=== PATIENT | female | born 1940 | race Caucasian/White ===

== ENCOUNTER → 2018-01-06 | Outpatient (CLI) | payer MEDICARE, BC ==
[~2018-01-06] MED LIST: ALBU90OI INH; ALLERCLEAR10 MG PO; ASPI325 PO; Advil200 M1 PO; Coq-1030 MG PO; DOCU100 PO; Flonase 0.05% N16 GM; HYDMOR2 PO; HYDR1TAB94 PO; Hair, Skin & N1 EACH PO; MAALOX ADVANCE1 EACH PO; Multivitamin1 EAC1 PO; OMEP20ER PO; ONDA4ODT SL; RAMI5; RAMI5 PO; ROSU10TA; TRIHYD253A PO; ZOLP5 PO
[2018-01-06 18:39] LABS: BASOPHILS ABSOLUTE AUTO 0.01 K/mm3 (0.00-0.23); BASOPHILS PERCENT AUTO 0 % (0-2); EOSINOPHILS ABSOLUTE AUTO 0.03 K/mm3 (0.00-0.68); EOSINOPHILS PERCENT AUTO 0 % (0-6); Hematocrit 39.8 % (33.0-51.0); Hemoglobin 13.6 g/dL (11.5-16.0); IMMATURE GRAN ABSOLUTE AUTO 0.05 K/mm3 (0.00-0.10); IMMATURE GRAN PERCENT AUTO 1 % (0-1); LYMPHOCYTES ABSOLUTE AUTO 0.67 K/mm3 (0.84-5.20); LYMPHOCYTES PERCENT AUTO 8 % (21-46); MONOCYTES ABSOLUTE AUTO 0.48 K/mm3 (0.16-1.47); MONOCYTES PERCENT AUTO 6 % (4-13); Mean Corpuscular HGB 29.6 pg (26.0-34.0); Mean Corpuscular HGB Conc 34.2 g/dL (31.5-36.5); Mean Corpuscular Volume 87 fL (80-100); Mean Platelet Volume 10.2 fL (9.1-12.4); NEUTROPHILS PERCENT AUTO 85 % (41-73); Platelet Count 251 K/mm3 (150-400); RDW Coefficient Variation 15.4 % (11.7-14.2); RDW Standard Deviation 48.9 fL (35.1-46.3); Red Blood Cell Count 4.59 M/mm3 (3.80-5.20); White Blood Cell Count 8.34 K/mm3 (4.00-11.30)
== END ==
LOC: LAB EV 18:35
PROVIDERS: Internal Medicine
DX: R50.9 Fever, unspecified (principal)
CPT/HCPCS: 85025

== ENCOUNTER → 2018-03-28 | Outpatient (CLI) | payer MEDICARE, BC | LOC: PLD 07:47 → LAB SHORT 07:47 | DX: D22.5 Melanocytic nevi of trunk (principal) | CPT/HCPCS: 88305 ==

== ENCOUNTER 2019-01-16 10:10 | Day surgery (SDC) | payer MEDICARE, BC ==
[~2019-01-16] VITALS: Ht 152.4 cm; Wt 52.3 kg
[~2019-01-16 10:10] MED LIST changes: +ASPI81CH PO
[2019-01-16] MEDS ORDERED: ALBU90OI61 INH (10:32)
[2019-01-16] MEDS ORDERED: Flonase 0.05% N16 GM (10:33)
--- NOTE | 2019-01-16 14:45 | NUR ---
RIGHT RADIAL SITE BLEEDING. 2 CC AIR ADDED TO TR BAND. BLEEDING STOPPED.
--- NOTE | 2019-01-16 15:37 | NUR ---
AMBULATED TO BATHROOM. SLIGHTLY DIZZY BUT BETTER AFTER BEING UP. TR BAND INTACT NO BLEEDING AT SITE.
--- NOTE | 2019-01-16 16:00 | NUR ---
TYLENOL 650 MG PO GIVEN FOR 5/10 HEADACHE.
--- NOTE | 2019-01-16 19:19 | NUR ---
SHIFT SUMMARY Assumed care of pt upon arrival to unit at 1640. Report recieved from heart center nurse. Pt self transferred from [facility] to PCU bed. Pt has right transradial access. Pt on room air. Sinus rhythm per telemetry. Color, sensation, capillary refill, and distal pulses equal BUE. 2 mL air removed form TR band. No drainage. Bed in lowest position. Call light in reach. Pt denies need at this time. Report given to Noy LUCAS. Plans for pt to discharge in AM.
--- NOTE | 2019-01-17 04:25 | NUR ---
SHIFT SUMMARY: APPROX 1900 RELEASED 2ML AIR FROM TR BAND, PATIENT STARTED TO SEEP BLOOD, AIR REINFLATED APPROX 3 ATTEMPTS BETWEEN 1999 AND 2300 TO RELEASE AIR FROM TR BAND, PATIENT BEGAN TO SEEP BLOOD SLOWLY EACH TIME, AIR REINFLATED EACH TIME. APPROX 0000 REATTEMPTED TO RELEASE 2ML AIR FROM TR BAND, SUCCESSFULL, NO NEW SIGNS OF BLEEDING NOTED. PATIENT HAS NOT HAD ANY NEW BRUSING OR SENSATION LOSS DISTAL TO PUNCTURE SITE, PULSES AND CAPILLARY REFILL WNL, VSS, PATIENT ALERT ORIENTED AND ABLE TO AMBULATE WITH NO DIZZY EPISODES.
[2019-01-17 05:24] LABS: BASOPHILS ABSOLUTE AUTO 0.02 K/mm3 (0.00-0.23); BASOPHILS PERCENT AUTO 0 % (0-2); EOSINOPHILS ABSOLUTE AUTO 0.07 K/mm3 (0.00-0.68); EOSINOPHILS PERCENT AUTO 1 % (0-6); Hematocrit 38.4 % (33.0-51.0); Hemoglobin 12.7 g/dL (11.5-16.0); IMMATURE GRAN ABSOLUTE AUTO 0.01 K/mm3 (0.00-0.10); IMMATURE GRAN PERCENT AUTO 0 % (0-1); LYMPHOCYTES ABSOLUTE AUTO 1.12 K/mm3 (0.84-5.20); LYMPHOCYTES PERCENT AUTO 17 % (21-46); MONOCYTES ABSOLUTE AUTO 0.64 K/mm3 (0.16-1.47); MONOCYTES PERCENT AUTO 10 % (4-13); Mean Corpuscular HGB 32.3 pg (26.0-34.0); Mean Corpuscular HGB Conc 33.1 g/dL (31.5-36.5); Mean Corpuscular Volume 98 fL (80-100); Mean Platelet Volume 10.4 fL (9.1-12.4); NEUTROPHILS ABSOLUTE AUTO 4.57 K/mm3 (1.96-9.15); NEUTROPHILS PERCENT AUTO 71 % (41-73); Platelet Count 232 K/mm3 (150-400); RDW Coefficient Variation 12.2 % (11.7-14.2); RDW Standard Deviation 44.4 fL (35.1-46.3); Red Blood Cell Count 3.93 M/mm3 (3.80-5.20); White Blood Cell Count 6.43 K/mm3 (4.00-11.30)
[2019-01-17 05:42] LABS: Anion Gap 10 mmol/L (6-16); Blood Urea Nitrogen 10 mg/dL (8-24); Bun/Creatinine Ratio 12.5 (12.0-20.0); CO2, Blood 21 mmol/L (21-32); Calcium, Blood 8.6 mg/dL (8.5-10.1); Chloride, Blood 111 mmol/L (98-108); Glomerular Filtration Rate >60 (60-); Glucose, Blood 112 mg/dL (70-99); Potassium, Blood 3.6 mmol/L (3.5-5.5); Sodium, Blood 142 mmol/L (136-145)
--- NOTE | 2019-01-17 05:56 | NUR ---
cont.. PATIENT TR BAND SUCCESSFULLY RECOVERED AT APPROX 0500, NO BLEEDING , HEMATOMA OR INCREASED SWELLING NOTED. ALL SENSATIONS INTACT, GOOD CIRCULATION, NO PAIN. OCCLUSSIVE BANDAGE ON AND BRACE ON. PATIENT DOING WELL, VSS, CALL LIGHT WITHIN REACH.
[2019-01-17] MEDS ORDERED: CARV3.125 PO (10:59)
[2019-01-17] MEDS ORDERED: CLOP75 PO (10:59)
--- NOTE | 2019-01-17 11:41 | NUR ---
DISCHARGE NOTE PT STABLE FOR DISCHARGE. IV REMOVED. RIGHT WRIST SOFT, NO BLEED OR HEMATOMA, OPSITE CDI, ARM BOARD IN PLACE. DISCHARGE INSTRUCTIONS REVIEWED WITH PT. PT VERBALIZES UNDERSTANDING AND DENIES QUESTIONS. PT DISCHARGED TO WAITING CAR WITH BELONGINGS.
== END 2019-01-17 11:55 | disposition home or self-care (01) ==
LOC: MHTC 10:10 → PCU 13:41 → MHTC 01-17 11:55
PROVIDERS: Emergency Medicine
DX: R94.30 Abnormal result of cardiovascular function study, unspecified (principal); R07.9 Chest pain, unspecified
CPT/HCPCS: 36415; 80048; 85025; 85347; 92921; 93458; 99152; 99153; C1725; C1769; C1874; C1887; C1894; C9600; J0360; J1644; J2250; J3010; J7030; J7040; Q9967

== ENCOUNTER → 2019-05-13 | Outpatient (CLI) | payer MEDICARE, BC ==
[~2019-05-13] MED LIST changes: +ALBU90OI61 INH; +CARV3.125 PO; +CLOP75 PO
== END | disposition home or self-care (01) ==
LOC: LAB EV 12:13 → LAB SHORT 12:13
DX: J02.9 Acute pharyngitis, unspecified (principal)
CPT/HCPCS: 87081

== ENCOUNTER 2020-03-28 08:46 | Day surgery (SDC) | payer MEDICARE, BC | END 2020-03-28 23:30 | disposition home or self-care (01) | LOC: MOI RAD 08:46 | DX: M24.851 Other specific joint derangements of right hip, not elsewhere classified (principal); M16.11 Unilateral primary osteoarthritis, right hip; M94.251 Chondromalacia, right hip; M70.61 Trochanteric bursitis, right hip | CPT/HCPCS: 20610; 73722; 77002; A9577; Q9967 ==

== ENCOUNTER 2020-12-02 16:32 | Observation (INO) | payer MEDICARE, BC ==
[~2020-12-02] VITALS: Ht 157.5 cm; Wt 50.9 kg
[~2020-12-02 16:32] MED LIST changes: -ASPI81CH PO; +ASPIR 8181 MG PO
[2020-12-02 17:24] LABS: BASOPHILS ABSOLUTE AUTO 0.02 K/mm3 (0.00-0.23); BASOPHILS PERCENT AUTO 0 % (0-2); EOSINOPHILS ABSOLUTE AUTO 0.04 K/mm3 (0.00-0.68); EOSINOPHILS PERCENT AUTO 1 % (0-6); Hematocrit 44.9 % (33.0-51.0); Hemoglobin 14.9 g/dL (11.5-16.0); IMMATURE GRAN ABSOLUTE AUTO 0.03 K/mm3 (0.00-0.10); IMMATURE GRAN PERCENT AUTO 0 % (0-1); LYMPHOCYTES PERCENT AUTO 7 % (21-46); MONOCYTES ABSOLUTE AUTO 0.57 K/mm3 (0.16-1.47); MONOCYTES PERCENT AUTO 7 % (4-13); Mean Corpuscular HGB 31.8 pg (26.0-34.0); Mean Corpuscular HGB Conc 33.2 g/dL (31.5-36.5); Mean Corpuscular Volume 96 fL (80-100); NEUTROPHILS ABSOLUTE AUTO 7.21 K/mm3 (1.96-9.15); NEUTROPHILS PERCENT AUTO 85 % (41-73); Platelet Count 263 K/mm3 (150-400); RDW Coefficient Variation 12.5 % (11.7-14.2); RDW Standard Deviation 44.2 fL (35.1-46.3); Red Blood Cell Count 4.68 M/mm3 (3.80-5.20); White Blood Cell Count 8.47 K/mm3 (4.00-11.30)
[2020-12-02 17:59] LABS: Alanine Aminotransfer (ALT/SGP 37 U/L (12-78); Albumin, Blood 3.9 g/dL (3.4-5.0); Albumin/Globulin Ratio 1.2 (0.8-1.8); Alk Phos 61 U/L (50-136); Anion Gap 7 mmol/L (6-16); Aspartate Aminotrans (AST/SGOT 38 U/L (12-37); Bilirubin, Total 0.9 mg/dL (0.1-1.0); Blood Urea Nitrogen 22 mg/dL (8-24); Bun/Creatinine Ratio 23.5 (12.0-20.0); CO2, Blood 24 mmol/L (21-32); Calcium, Blood 9.6 mg/dL (8.5-10.1); Chloride, Blood 104 mmol/L (98-108); Creatinine, Blood 0.94 mg/dL (0.40-1.00); Globulin, Blood 3.3 g/dL (2.2-4.0); Glomerular Filtration Rate >60 (60-); Glucose, Blood 116 mg/dL (70-99); Potassium, Blood 4.4 mmol/L (3.5-5.5); Sodium, Blood 135 mmol/L (136-145); Total Protein, Blood 7.2 g/dL (6.4-8.2)
[2020-12-02] MEDS ORDERED: DOCU100 PO ×2 (19:40→20:09)
[2020-12-02] MEDS ORDERED: AMLODIPINE BES2.5 MG PO ×2 (19:41→20:08)
[2020-12-02] MEDS ORDERED: ROSUVASTATIN CA20 MG PO (20:07)
[2020-12-02] MEDS ORDERED: BENADRYL25 MG PO (22:47)
[2020-12-02] MEDS ORDERED: MELATONIN5 M1 (22:48)
[2020-12-03 05:08] LABS: BASOPHILS ABSOLUTE AUTO 0.02 K/mm3 (0.00-0.23); BASOPHILS PERCENT AUTO 0 % (0-2); EOSINOPHILS ABSOLUTE AUTO 0.02 K/mm3 (0.00-0.68); EOSINOPHILS PERCENT AUTO 0 % (0-6); Hematocrit 37.2 % (33.0-51.0); IMMATURE GRAN ABSOLUTE AUTO 0.01 K/mm3 (0.00-0.10); IMMATURE GRAN PERCENT AUTO 0 % (0-1); LYMPHOCYTES ABSOLUTE AUTO 0.89 K/mm3 (0.84-5.20); LYMPHOCYTES PERCENT AUTO 14 % (21-46); MONOCYTES ABSOLUTE AUTO 0.78 K/mm3 (0.16-1.47); MONOCYTES PERCENT AUTO 12 % (4-13); Mean Corpuscular HGB 31.5 pg (26.0-34.0); Mean Corpuscular HGB Conc 32.3 g/dL (31.5-36.5); Mean Corpuscular Volume 98 fL (80-100); Mean Platelet Volume 10.2 fL (9.1-12.4); NEUTROPHILS ABSOLUTE AUTO 4.64 K/mm3 (1.96-9.15); NEUTROPHILS PERCENT AUTO 73 % (41-73); Platelet Count 228 K/mm3 (150-400); RDW Coefficient Variation 12.6 % (11.7-14.2); RDW Standard Deviation 45.5 fL (35.1-46.3); Red Blood Cell Count 3.81 M/mm3 (3.80-5.20); White Blood Cell Count 6.36 K/mm3 (4.00-11.30)
[2020-12-03 05:25] LABS: Anion Gap 9 mmol/L (6-16); Blood Urea Nitrogen 18 mg/dL (8-24); Bun/Creatinine Ratio 19.5 (12.0-20.0); CO2, Blood 21 mmol/L (21-32); Calcium, Blood 7.7 mg/dL (8.5-10.1); Chloride, Blood 113 mmol/L (98-108); Creatinine, Blood 0.93 mg/dL (0.40-1.00); Glomerular Filtration Rate >60 (60-); Glucose, Blood 97 mg/dL (70-99); Sodium, Blood 143 mmol/L (136-145)
--- NOTE | 2020-12-03 07:25 | NUR ---
12/03/20 0600 AWAKE AND STATED SHE SLEPT WELL. DENIES ANY NAUSEA AND ONLY MILD GENERAL DISCOMFORT. DENIED NEED FOR MEDS. VITALS IMPROVED FROM LAST EVENING WITH MEDS. VOIDING QS. NPO ALL SHIFT.
--- NOTE | 2020-12-03 17:10 | NUR ---
PT ABLE TO PASS STOOL, LARGE, WATERY AMOUNTS. PT IS ALERT AND ORIENTED AND ABLE TO EXPRESS ANY NEEDS. PT ADVANCED TO CLEAR LIQUIDS. TOLERATING WELL. CALL LIGHT WITHIN REACH WILL CONTINUE TO MONITOR.
--- NOTE | 2020-12-04 05:06 | NUR ---
TRANSITIONAL LIVING SPECIALIST SUMMARY NO ACUTE CHANGES THIS SHIFT. PT AAOX4 AND INDEPENDENT IN ROOM. VERY PLEASANT. DENIES ABD PAIN, N/V. PT REPORTED HAVING SEVERAL LOOSE STOOLS ON DAY SHIFT AND REPORTS "FEELING A TON BETTER" SINCE THEN. HAS RESTED MOST OF THE NIGHT WITH NO COMPLAINTS. VSS, WILL CONTINUE TO MONITOR.
[2020-12-04] MEDS ORDERED: ACET120S PR (11:50)
[2020-12-04] MEDS ORDERED: ONDA4ODT MM (11:51)
== END 2020-12-04 14:13 | disposition home or self-care (01) ==
LOC: ER 16:32 → MEDS 16:33 → ERHOLD 16:33 → MEDS 22:12
PROVIDERS: Nurse Practitioner Acute Care; Physician Assistant; ADMIT Family Medicine
DX: K56.600 Partial intestinal obstruction, unspecified as to cause (principal); I10 Essential (primary) hypertension; J45.20 Mild intermittent asthma, uncomplicated; E78.5 Hyperlipidemia, unspecified; G43.909 Migraine, unspecified, not intractable, without status migrainosus; Z79.82 Long term (current) use of aspirin; Z79.899 Other long term (current) drug therapy; Z79.51 Long term (current) use of inhaled steroids; Z79.02 Long term (current) use of antithrombotics/antiplatelets; Z87.891 Personal history of nicotine dependence
CPT/HCPCS: 36415; 74176; 74250; 80048; 80053; 85025; 93005; 93010; 96361; 96372; 96374; 99285-25; A9270; G0378; J0610; J1650; J2405; J3480; J7030

== ENCOUNTER 2021-02-13 15:41 | Emergency (ER) | payer MEDICARE, BC ==
[~2021-02-13] VITALS: Ht 157.5 cm; Wt 49.9 kg
[~2021-02-13 15:41] MED LIST changes: +ACET120S PR; +AMLODIPINE BES2.5 MG PO; +BENADRYL25 MG PO; +MELATONIN5 M1; +ONDA4ODT MM; +ROSUVASTATIN CA20 MG PO
[2021-02-13 16:46] LABS: BASOPHILS ABSOLUTE AUTO 0.03 K/mm3 (0.00-0.23); BASOPHILS PERCENT AUTO 1 % (0-2); EOSINOPHILS ABSOLUTE AUTO 0.16 K/mm3 (0.00-0.68); EOSINOPHILS PERCENT AUTO 3 % (0-6); Hematocrit 38.8 % (33.0-51.0); IMMATURE GRAN ABSOLUTE AUTO 0.01 K/mm3 (0.00-0.10); IMMATURE GRAN PERCENT AUTO 0 % (0-1); LYMPHOCYTES ABSOLUTE AUTO 0.97 K/mm3 (0.84-5.20); LYMPHOCYTES PERCENT AUTO 20 % (21-46); MONOCYTES ABSOLUTE AUTO 0.69 K/mm3 (0.16-1.47); MONOCYTES PERCENT AUTO 15 % (4-13); Mean Corpuscular HGB Conc 33.5 g/dL (31.5-36.5); Mean Corpuscular Volume 96 fL (80-100); NEUTROPHILS PERCENT AUTO 61 % (41-73); Platelet Count 225 K/mm3 (150-400); RDW Coefficient Variation 12.6 % (11.7-14.2); RDW Standard Deviation 44.1 fL (35.1-46.3); Red Blood Cell Count 4.06 M/mm3 (3.80-5.20); White Blood Cell Count 4.76 K/mm3 (4.00-11.30)
[2021-02-13 16:53] LABS: Albumin, Blood 3.8 g/dL (3.4-5.0); Albumin/Globulin Ratio 1.2 (0.8-1.8); Bilirubin, Total 0.5 mg/dL (0.1-1.0); Bun/Creatinine Ratio 20.8 (12.0-20.0); Calcium, Blood 9.6 mg/dL (8.5-10.1); Creatinine, Blood 0.96 mg/dL (0.40-1.00); Globulin, Blood 3.2 g/dL (2.2-4.0)
[2021-02-13 17:14] LABS: International Normalized Ratio 0.95; Prothrombin Time Results 10.2 Sec (9.7-11.5)
== END 2021-02-13 18:31 | disposition home or self-care (01) ==
LOC: ER 15:41
PROVIDERS: Physician Assistant
DX: S06.6X9A Traumatic subarachnoid hemorrhage with loss of consciousness of unspecified duration, initial encounter (principal); I10 Essential (primary) hypertension; E78.5 Hyperlipidemia, unspecified; Z79.82 Long term (current) use of aspirin; Z79.899 Other long term (current) drug therapy; Z79.02 Long term (current) use of antithrombotics/antiplatelets; Z87.891 Personal history of nicotine dependence; Z79.01 Long term (current) use of anticoagulants; Z51.81 Encounter for therapeutic drug level monitoring
CPT/HCPCS: 36415; 70450; 80053; 85025; 85610; 85730; 99284-25

== ENCOUNTER 2021-03-01 21:04 | Emergency (ER) | payer MEDICARE, BC ==
[~2021-03-01] VITALS: Ht 157.5 cm; Wt 49.4 kg
[2021-03-01 23:13] LABS: BASOPHILS ABSOLUTE AUTO 0.04 K/mm3 (0.00-0.23); BASOPHILS PERCENT AUTO 1 % (0-2); EOSINOPHILS ABSOLUTE AUTO 0.19 K/mm3 (0.00-0.68); EOSINOPHILS PERCENT AUTO 3 % (0-6); Hematocrit 40.1 % (33.0-51.0); Hemoglobin 13.5 g/dL (11.5-16.0); IMMATURE GRAN ABSOLUTE AUTO 0.02 K/mm3 (0.00-0.10); IMMATURE GRAN PERCENT AUTO 0 % (0-1); LYMPHOCYTES ABSOLUTE AUTO 0.96 K/mm3 (0.84-5.20); LYMPHOCYTES PERCENT AUTO 15 % (21-46); MONOCYTES ABSOLUTE AUTO 0.65 K/mm3 (0.16-1.47); MONOCYTES PERCENT AUTO 10 % (4-13); Mean Corpuscular HGB 32.3 pg (26.0-34.0); Mean Corpuscular HGB Conc 33.7 g/dL (31.5-36.5); Mean Corpuscular Volume 96 fL (80-100); Mean Platelet Volume 9.8 fL (9.1-12.4); NEUTROPHILS ABSOLUTE AUTO 4.78 K/mm3 (1.96-9.15); NEUTROPHILS PERCENT AUTO 72 % (41-73); Platelet Count 247 K/mm3 (150-400); RDW Coefficient Variation 12.7 % (11.7-14.2); RDW Standard Deviation 45.6 fL (35.1-46.3); Red Blood Cell Count 4.18 M/mm3 (3.80-5.20); White Blood Cell Count 6.64 K/mm3 (4.00-11.30)
[2021-03-01 23:32] LABS: Albumin, Blood 3.8 g/dL (3.4-5.0); Albumin/Globulin Ratio 1.1 (0.8-1.8); Bilirubin, Total 0.5 mg/dL (0.1-1.0); Bun/Creatinine Ratio 16.5 (12.0-20.0); Calcium, Blood 9.2 mg/dL (8.5-10.1); Creatinine, Blood 1.15 mg/dL (0.40-1.00); Globulin, Blood 3.4 g/dL (2.2-4.0); Total Protein, Blood 7.2 g/dL (6.4-8.2)
== END 2021-03-01 23:45 | disposition home or self-care (01) ==
LOC: ER 21:04
PROVIDERS: Emergency Medicine
DX: S06.5X9A Traumatic subdural hemorrhage with loss of consciousness of unspecified duration, initial encounter (principal); I10 Essential (primary) hypertension; E78.5 Hyperlipidemia, unspecified; Z79.02 Long term (current) use of antithrombotics/antiplatelets; Z79.82 Long term (current) use of aspirin; Z79.899 Other long term (current) drug therapy; W19.XXXA Unspecified fall, initial encounter
CPT/HCPCS: 70450; 80053; 85025; 99284-25

== ENCOUNTER 2021-03-04 11:55 | Emergency (ER) | payer MEDICARE, BC ==
[~2021-03-04] VITALS: Ht 154.9 cm; Wt 50.4 kg
[2021-03-04 12:23] LABS: BASOPHILS ABSOLUTE AUTO 0.02 K/mm3 (0.00-0.23); BASOPHILS PERCENT AUTO 0 % (0-2); EOSINOPHILS ABSOLUTE AUTO 0.13 K/mm3 (0.00-0.68); EOSINOPHILS PERCENT AUTO 1 % (0-6); Hematocrit 41.2 % (33.0-51.0); Hemoglobin 13.9 g/dL (11.5-16.0); IMMATURE GRAN ABSOLUTE AUTO 0.03 K/mm3 (0.00-0.10); IMMATURE GRAN PERCENT AUTO 0 % (0-1); LYMPHOCYTES ABSOLUTE AUTO 0.86 K/mm3 (0.84-5.20); LYMPHOCYTES PERCENT AUTO 9 % (21-46); MONOCYTES ABSOLUTE AUTO 0.97 K/mm3 (0.16-1.47); MONOCYTES PERCENT AUTO 10 % (4-13); Mean Corpuscular HGB 32.1 pg (26.0-34.0); Mean Corpuscular HGB Conc 33.7 g/dL (31.5-36.5); Mean Corpuscular Volume 95 fL (80-100); Mean Platelet Volume 10.1 fL (9.1-12.4); NEUTROPHILS ABSOLUTE AUTO 7.51 K/mm3 (1.96-9.15); NEUTROPHILS PERCENT AUTO 79 % (41-73); Platelet Count 296 K/mm3 (150-400); RDW Coefficient Variation 12.6 % (11.7-14.2); RDW Standard Deviation 44.9 fL (35.1-46.3); Red Blood Cell Count 4.33 M/mm3 (3.80-5.20); White Blood Cell Count 9.52 K/mm3 (4.00-11.30)
[2021-03-04 12:43] LABS: Albumin, Blood 3.8 g/dL (3.4-5.0); Bilirubin, Total 1.2 mg/dL (0.1-1.0); Bun/Creatinine Ratio 16.8 (12.0-20.0); Calcium, Blood 9.4 mg/dL (8.5-10.1); Creatinine, Blood 1.01 mg/dL (0.40-1.00); Globulin, Blood 3.9 g/dL (2.2-4.0); Potassium, Blood 4.1 mmol/L (3.5-5.5); Total Protein, Blood 7.7 g/dL (6.4-8.2)
== END 2021-03-04 17:44 | disposition home or self-care (01) ==
LOC: ER 11:55
PROVIDERS: Physician Assistant
DX: I62.00 Nontraumatic subdural hemorrhage, unspecified (principal); I10 Essential (primary) hypertension; Z79.899 Other long term (current) drug therapy; Z87.891 Personal history of nicotine dependence
CPT/HCPCS: 36415; 70450; 80053; 85025; 99284-25; A9270

== ENCOUNTER → 2022-06-10 | Outpatient (CLI) | payer MEDICARE ==
[2022-06-10 11:54] LABS: Source, Urine Clean Catch
[2022-06-10 13:24] LABS: Appearance, Urine Hazy (Clear); Bilirubin, Urine Neg (Neg); Blood, Urine 3+ (Neg); Color, Urine Yellow (P-Yellow); Glucose Qualitative, Urine Neg (Neg); Ketones, Urine Neg (Neg); Leukocyte Esterase, Urine 3+ (Neg); Nitrite, Urine Neg (Neg); Protein, Urine 1+ (Neg); Specific Gravity, Urine 1.015 (1.003-1.022); Urobilinogen, Urine NORM (Normal)
[2022-06-10 13:54] LABS: Bacteria Many /hpf; Squamous Epithelial Cells Few /hpf (Few); Transitional Epithelial Cells Rare /hpf (0-Rare); White Blood Cells, Urine 50-100 /hpf (0-5)
== END | disposition home or self-care (01) ==
LOC: LAB 11:52 → LAB SHORT 11:52 → EDSTATUS 14:38
PROVIDERS: Internal Medicine
DX: R30.0 Dysuria (principal)
CPT/HCPCS: 81001; 87077; 87086; 87186

== ENCOUNTER → 2022-10-18 | Outpatient (CLI) | payer MEDICARE | END | disposition home or self-care (01) | LOC: LAB SHORT 08:13 | DX: L72.9 Follicular cyst of the skin and subcutaneous tissue, unspecified (principal) | CPT/HCPCS: 88304 ==

== ENCOUNTER 2023-11-29 01:32 | Inpatient (IN) | payer MEDICARE ==
[~2023-11-29] VITALS: Ht 152.4 cm; Wt 49.0 kg
[2023-11-29 02:12] LABS: BASOPHILS ABSOLUTE AUTO 0.02 K/mm3 (0.00-0.23); BASOPHILS PERCENT AUTO 0 % (0-2); EOSINOPHILS PERCENT AUTO 0 % (0-6); Hematocrit 43.2 % (33.0-51.0); Hemoglobin 14.7 g/dL (11.5-16.0); IMMATURE GRAN ABSOLUTE AUTO 0.03 K/mm3 (0.00-0.10); IMMATURE GRAN PERCENT AUTO 0 % (0-1); LYMPHOCYTES ABSOLUTE AUTO 0.44 K/mm3 (0.84-5.20); LYMPHOCYTES PERCENT AUTO 5 % (21-46); MONOCYTES ABSOLUTE AUTO 0.41 K/mm3 (0.16-1.47); MONOCYTES PERCENT AUTO 5 % (4-13); Mean Corpuscular HGB 32.5 pg (26.0-34.0); Mean Corpuscular Volume 95 fL (80-100); Mean Platelet Volume 9.7 fL (9.1-12.4); NEUTROPHILS ABSOLUTE AUTO 7.86 K/mm3 (1.96-9.15); NEUTROPHILS PERCENT AUTO 90 % (41-73); Platelet Count 276 K/mm3 (150-400); RDW Standard Deviation 42.2 fL (35.1-46.3); Red Blood Cell Count 4.53 M/mm3 (3.80-5.20); White Blood Cell Count 8.76 K/mm3 (4.00-11.30)
[2023-11-29 02:37] LABS: Albumin, Blood 3.9 g/dL (3.4-5.0); Albumin/Globulin Ratio 1.1 (0.8-1.8); Bilirubin, Total 0.9 mg/dL (0.1-1.0); Bun/Creatinine Ratio 21.2 (12.0-20.0); Calcium, Blood 9.8 mg/dL (8.5-10.1); Creatinine, Blood 1.04 mg/dL (0.40-1.00); Globulin, Blood 3.7 g/dL (2.2-4.0); Potassium, Blood 4.3 mmol/L (3.5-5.5); Total Protein, Blood 7.6 g/dL (6.4-8.2)
[2023-11-29 04:37] LABS: BASOPHILS ABSOLUTE AUTO 0.02 K/mm3 (0.00-0.23); BASOPHILS PERCENT AUTO 0 % (0-2); EOSINOPHILS PERCENT AUTO 0 % (0-6); Hematocrit 37.8 % (33.0-51.0); Hemoglobin 12.9 g/dL (11.5-16.0); IMMATURE GRAN ABSOLUTE AUTO 0.04 K/mm3 (0.00-0.10); IMMATURE GRAN PERCENT AUTO 0 % (0-1); LYMPHOCYTES ABSOLUTE AUTO 0.51 K/mm3 (0.84-5.20); LYMPHOCYTES PERCENT AUTO 5 % (21-46); MONOCYTES ABSOLUTE AUTO 0.45 K/mm3 (0.16-1.47); MONOCYTES PERCENT AUTO 4 % (4-13); Mean Corpuscular HGB 32.3 pg (26.0-34.0); Mean Corpuscular HGB Conc 34.1 g/dL (31.5-36.5); Mean Corpuscular Volume 95 fL (80-100); NEUTROPHILS ABSOLUTE AUTO 9.68 K/mm3 (1.96-9.15); NEUTROPHILS PERCENT AUTO 90 % (41-73); Platelet Count 273 K/mm3 (150-400); RDW Coefficient Variation 12.2 % (11.7-14.2); RDW Standard Deviation 42.6 fL (35.1-46.3)
[2023-11-29 04:53] LABS: International Normalized Ratio 1.01; Prothrombin Time Results 10.6 Sec (9.7-11.5)
[2023-11-29 05:27] LABS: Albumin, Blood 3.2 g/dL (3.4-5.0); Bilirubin, Total 0.8 mg/dL (0.1-1.0); Bun/Creatinine Ratio 24.1 (12.0-20.0); Calcium, Blood 9.2 mg/dL (8.5-10.1); Creatinine, Blood 0.91 mg/dL (0.40-1.00); Globulin, Blood 3.3 g/dL (2.2-4.0); Magnesium, Blood 1.9 mg/dL (1.6-2.4); Potassium, Blood 4.6 mmol/L (3.5-5.5); Total Protein, Blood 6.5 g/dL (6.4-8.2)
[2023-11-29 06:03] VITALS: BP 139/56
[2023-11-29] MEDS ORDERED: Estrace Vagin42.5 GM VAG (06:36)
[2023-11-29] MEDS ORDERED: Ramipril5 MG (06:37)
[2023-11-29] MEDS ORDERED: CARVEDILOL3.125 MG (06:37)
[2023-11-29 07:53] VITALS: BP 121/52
--- NOTE | 2023-11-29 12:53 | NUR ---
PASTING INSPECTOR DOCUMENTATION 11/29/23 PATIENT GAVE VERBAL CONSENT FOR THIS STUDENT TO CARE FOR THEM TODAY
[2023-11-29 15:29] VITALS: BP 162/83
--- NOTE | 2023-11-29 17:30 | NUR ---
SUMMARY- PT DENIES ANY PAIN AND NAUSEA SINCE ADMISSION TO MEDICAL FLOOR. PT TOLERATED SMALL BOWEL FOLLOW THROUGH WELL WITH NO NAUSEA. PT HAS HAD MULTIPLE LOOSE STOOLS SINCE RETURNING FROM IMAGING. PT IND IN ROOM. AAOX4. CALM AND COOPERTIVE. PT IS TRYING CLD FOR DINNER.
[2023-11-29 20:04] VITALS: BP 135/60
[2023-11-30 03:17] VITALS: BP 119/68
--- NOTE | 2023-11-30 04:31 | NUR ---
HOSPITALIST CONTACTED. PATIENT BLOOD SUGARS HAVE REMAINED <150. PATIENT HAS NOT NEEDED INSULIN COVERAGE. PATIENT HAS NO HX OF DIABETES AND IS CURRENTLY ON A CLEAR LIQUID DIET. TALKED WITH DOCTOR KARRIE REGARDING THE PATIENT TOLERATING CLEAR LIQUID DIET AND IF THE PATIENT WOULD BE ABLE TO BE ADVANCED- ORDERED FOR DIET TO BE ADVANCED TOLERATED. ORDERED TO DISCONTINUE INSULIN, DC Q6 BLOOD SUGAR CHECKS, AND TO ADD PRN BLOOD SUGAR CHECKS FOR S/S OF HYPOGLYCEMIA.
--- NOTE | 2023-11-30 04:41 | NUR ---
SHIFT SUMMARY. PATIENT IS A PLEASANT 83 YEAR OLD FEMALE IN WITH SBO. PATIENT IS AOX4. CALLS APPROPRIATELY AND IS ABLE TO MAKE HER NEEDS KNOWN. PATIENT HAS HAD LOOSE STOOLS THIS EVENING-PATIENT IS INCONTINENT AT TIMES WITH STOOL D/T THE SUDDEN ONSET OF NEEDING TO GO. PATIENT UP INDEPENDENTLY IN ROOM. PATIENT IS ON RA. PATIENT TOLERATING CLEAR LIQUID DIET-TO ADVANCE DIET TO FULL LIQUID. PATIENT HAS DENIED PAIN. NEEDS HAVE BEEN ASSESSED AND ADDRESSED T/O SHIFT. NO EVENTS THIS SHIFT. BED IS LOCKED IN THE LOWEST POSITION WILL CALL LIGHT IN REACH. NO S/S OF DISTRESS NOTED AT THIS TIME. CARE IS ONGOING.
[2023-11-30 05:28] LABS: BASOPHILS ABSOLUTE AUTO 0.03 K/mm3 (0.00-0.23); BASOPHILS PERCENT AUTO 1 % (0-2); EOSINOPHILS ABSOLUTE AUTO 0.02 K/mm3 (0.00-0.68); EOSINOPHILS PERCENT AUTO 0 % (0-6); Hemoglobin 11.4 g/dL (11.5-16.0); IMMATURE GRAN ABSOLUTE AUTO 0.01 K/mm3 (0.00-0.10); IMMATURE GRAN PERCENT AUTO 0 % (0-1); LYMPHOCYTES ABSOLUTE AUTO 1.28 K/mm3 (0.84-5.20); LYMPHOCYTES PERCENT AUTO 19 % (21-46); MONOCYTES ABSOLUTE AUTO 0.86 K/mm3 (0.16-1.47); MONOCYTES PERCENT AUTO 13 % (4-13); Mean Corpuscular HGB 32.3 pg (26.0-34.0); Mean Corpuscular HGB Conc 33.5 g/dL (31.5-36.5); Mean Corpuscular Volume 96 fL (80-100); Mean Platelet Volume 10.1 fL (9.1-12.4); NEUTROPHILS ABSOLUTE AUTO 4.42 K/mm3 (1.96-9.15); NEUTROPHILS PERCENT AUTO 67 % (41-73); Platelet Count 235 K/mm3 (150-400); RDW Coefficient Variation 12.7 % (11.7-14.2); RDW Standard Deviation 45.4 fL (35.1-46.3); Red Blood Cell Count 3.53 M/mm3 (3.80-5.20); White Blood Cell Count 6.62 K/mm3 (4.00-11.30)
[2023-11-30 06:13] LABS: Bun/Creatinine Ratio 25.1 (12.0-20.0); Creatinine, Blood 0.96 mg/dL (0.40-1.00); Magnesium, Blood 2.2 mg/dL (1.6-2.4); Potassium, Blood 3.5 mmol/L (3.5-5.5)
[2023-11-30 07:58] VITALS: BP 166/87
[2023-11-30 14:23] VITALS: BP 146/72
[2023-11-30 15:54] VITALS: BP 143/71
--- NOTE | 2023-11-30 18:14 | NUR ---
SHIFT SUMMARY- PT IS A/O, PLESANT AND COOPERATIVE. SHE IS EATING AND DRINKING WELL ADVANCED DIET THIS SHIFT AND SHE TOLORATED WELL. SHE IS INDEPENDENT TO THE BSC. HER BED IS IN THE LOW POSITION AND CALL LIGHT IS WITJOY GALLARDO.
[2023-11-30 19:34] VITALS: BP 140/74
--- NOTE | 2023-11-30 22:27 | NUR ---
report received verified, a/o very pleasent in rm calls appropriately and is independantm, awaiting possible dc in the am
[2023-12-01 02:54] VITALS: BP 102/55
[2023-12-01 05:16] LABS: Hematocrit 34.3 % (33.0-51.0); Hemoglobin 11.4 g/dL (11.5-16.0)
[2023-12-01 06:10] LABS: Albumin, Blood 2.7 g/dL (3.4-5.0); Anion Gap 4 mmol/L (6-16); Blood Urea Nitrogen 18 mg/dL (8-24); Bun/Creatinine Ratio 20.2 (12.0-20.0); CO2, Blood 25 mmol/L (21-32); Calcium, Blood 8.8 mg/dL (8.5-10.1); Chloride, Blood 113 mmol/L (98-108); Creatinine, Blood 0.89 mg/dL (0.40-1.00); Glomerular Filtration Rate 65 (60-); Glucose, Blood 100 mg/dL (70-99); Phosphorus, Blood 2.4 mg/dL (2.5-4.9); Potassium, Blood 4.1 mmol/L (3.5-5.5); Sodium, Blood 142 mmol/L (136-145)
[2023-12-01 07:26] VITALS: BP 148/70
--- NOTE | 2023-12-01 11:31 | NUR ---
DISCHARGE NOTE PT DISCHARGED TO HOME, PICKED UP BY A FRIEND. IV REMOVED. DISCHARGE INFORMATION AND EDUCATION PROVIDED TO THE PT. NO NEW MEDICATIONS ORDERED. PERSONAL BELONGINGS RETURNED.
== END 2023-12-01 12:30 | disposition home or self-care (01) | DRG 389 ==
LOC: ER 01:32 → MEDS 03:44 → ENPENDDIS 12-01 10:39 → MEDS 12-01 12:30
PROVIDERS: Internal Medicine; Physician Assistant; ADMIT Student in an Organized Health Care Education/Training Program
DX: K56.609 Unspecified intestinal obstruction, unspecified as to partial versus complete obstruction (principal); E87.0 Hyperosmolality and hypernatremia; I10 Essential (primary) hypertension; E78.5 Hyperlipidemia, unspecified; E86.9 Volume depletion, unspecified; R53.1 Weakness; Z87.19 Personal history of other diseases of the digestive system; Z87.891 Personal history of nicotine dependence; Z98.890 Other specified postprocedural states; Z79.899 Other long term (current) drug therapy; Z90.710 Acquired absence of both cervix and uterus; Z90.722 Acquired absence of ovaries, bilateral; Z98.42 Cataract extraction status, left eye; Z98.41 Cataract extraction status, right eye
CPT/HCPCS: 36415; 74177; 74250; 80048; 80053; 80069; 82947; 83735; 85014; 85018; 85025; 85610; 93005; 93010; 94762; 99285-25; A9270; J1815; J2405; J7120; Q9967

== ENCOUNTER 2024-01-11 14:43 | Emergency (ER) | payer MEDICARE ==
[~2024-01-11] VITALS: Ht 152.4 cm; Wt 49.9 kg
[~2024-01-11 14:43] MED LIST changes: +CARVEDILOL3.125 MG; +Estrace Vagin42.5 GM VAG; +Ramipril5 MG
[2024-01-11] MEDS ORDERED: Ondansetron HCl 2 MG / ML 2ML Vial IV ONE (15:20)
[2024-01-11 16:10] LABS: BASOPHILS ABSOLUTE AUTO 0.03 K/mm3 (0.00-0.23); BASOPHILS PERCENT AUTO 0 % (0-2); EOSINOPHILS ABSOLUTE AUTO 0.03 K/mm3 (0.00-0.68); EOSINOPHILS PERCENT AUTO 0 % (0-6); Hematocrit 40.7 % (33.0-51.0); Hemoglobin 13.9 g/dL (11.5-16.0); IMMATURE GRAN ABSOLUTE AUTO 0.02 K/mm3 (0.00-0.10); IMMATURE GRAN PERCENT AUTO 0 % (0-1); LYMPHOCYTES ABSOLUTE AUTO 0.61 K/mm3 (0.84-5.20); LYMPHOCYTES PERCENT AUTO 6 % (21-46); MONOCYTES ABSOLUTE AUTO 0.51 K/mm3 (0.16-1.47); MONOCYTES PERCENT AUTO 5 % (4-13); Mean Corpuscular HGB 32.3 pg (26.0-34.0); Mean Corpuscular HGB Conc 34.2 g/dL (31.5-36.5); Mean Corpuscular Volume 95 fL (80-100); Mean Platelet Volume 9.8 fL (9.1-12.4); NEUTROPHILS ABSOLUTE AUTO 9.66 K/mm3 (1.96-9.15); NEUTROPHILS PERCENT AUTO 89 % (41-73); Platelet Count 285 K/mm3 (150-400); RDW Coefficient Variation 12.5 % (11.7-14.2); RDW Standard Deviation 43.2 fL (35.1-46.3); White Blood Cell Count 10.86 K/mm3 (4.00-11.30)
[2024-01-11 16:30] LABS: Albumin/Globulin Ratio 1.1 (0.8-1.8); Bilirubin, Total 1.1 mg/dL (0.1-1.0); Bun/Creatinine Ratio 24.6 (12.0-20.0); Calcium, Blood 10.2 mg/dL (8.5-10.1); Creatinine, Blood 0.98 mg/dL (0.40-1.00); Globulin, Blood 3.7 g/dL (2.2-4.0); Potassium, Blood 4.2 mmol/L (3.5-5.5); Total Protein, Blood 7.7 g/dL (6.4-8.2)
[2024-01-11 17:01] VITALS: BP 143/70
[2024-01-11] MEDS ORDERED: HYDR1TAB94 PO (18:16)
[2024-01-11] MEDS ORDERED: ONDA4ODT SL (18:16)
== END 2024-01-11 18:24 | disposition home or self-care (01) ==
LOC: ER 14:43
PROVIDERS: Physician Assistant
DX: K52.9 Noninfective gastroenteritis and colitis, unspecified (principal); Z87.891 Personal history of nicotine dependence; I10 Essential (primary) hypertension; E78.5 Hyperlipidemia, unspecified; J45.909 Unspecified asthma, uncomplicated; G43.909 Migraine, unspecified, not intractable, without status migrainosus; Z87.19 Personal history of other diseases of the digestive system; Z79.899 Other long term (current) drug therapy
CPT/HCPCS: 74177; 80053; 83690; 85025; 99284-25; Q9967

== ENCOUNTER → 2024-05-07 | Outpatient (CLI) | payer MEDICARE ==
[2024-05-07 11:52] LABS: Source, Urine Clean Catch
[2024-05-07 13:06] LABS: Appearance, Urine Clear (Clear); Bilirubin, Urine Neg (Neg); Blood, Urine 2+ (Neg); Glucose Qualitative, Urine Neg (Neg); Ketones, Urine Neg (Neg); Leukocyte Esterase, Urine 3+ (Neg); Nitrite, Urine Neg (Neg); Protein, Urine Neg (Neg); Urobilinogen, Urine NORM (Normal)
[2024-05-07 13:29] LABS: Bacteria Many /hpf; Color, Urine Pale Yellow (P-Yellow); Squamous Epithelial Cells Few /hpf (Few); White Blood Cells, Urine 50-100 /hpf (0-5)
== END | disposition home or self-care (01) ==
LOC: LAB 11:51 → LAB SHORT 11:51
PROVIDERS: Internal Medicine
DX: R30.0 Dysuria (principal)
CPT/HCPCS: 81001; 87077; 87086; 87186

== ENCOUNTER → 2024-10-22 | Outpatient (CLI) | payer MEDICARE ==
[~2024-10-22] MED LIST changes: +ASPI81CH; +Amlodipine Bes2.5 MG; +BISA5EC; +CENTRUM SILVER1 EAC2; +EPIPEN0.3 MG/0.3; +FLUT.05NI; +IBUP200; +NITROGLYCERIN0.4 M3; +POTA8; +ROSUVASTATIN CAL5 MG
[2024-10-22 19:08] LABS: CHOL/HDL RATIO 2.8; Cholesterol 258 mg/dL (50-200); HDL Cholesterol 92 mg/dL (>39); LDL/HDL RATIO 1.5; Low Density Lipoprotein Chol 141 mg/dL (0-110); Triglycerides 124 mg/dL (30-160); Very Low Density Lipoprot Chol 24 mg/dL (6-32)
== END | disposition home or self-care (01) ==
LOC: LAB SHORT 12:42 → LAB 12:42
PROVIDERS: Internal Medicine
DX: E78.5 Hyperlipidemia, unspecified (principal)
CPT/HCPCS: 36415; 80061

== ENCOUNTER 2024-10-26 06:47 | Day surgery (SDC) | payer MEDICARE ==
[~2024-10-26] VITALS: Ht 152.4 cm; Wt 46.8 kg
[~2024-10-26 06:47] MED LIST changes: -ASPI81CH; -Amlodipine Bes2.5 MG; -BISA5EC; -CENTRUM SILVER1 EAC2; -EPIPEN0.3 MG/0.3; -FLUT.05NI; -IBUP200; -NITROGLYCERIN0.4 M3; -POTA8; -ROSUVASTATIN CAL5 MG
[2024-10-26] MEDS ORDERED: Amlodipine Bes2.5 MG (07:04)
[2024-10-26] MEDS ORDERED: EPIPEN0.3 MG/0.3 (07:05)
[2024-10-26] MEDS ORDERED: ASPI81CH (07:05)
[2024-10-26] MEDS ORDERED: BISA5EC (07:05)
[2024-10-26] MEDS ORDERED: CENTRUM SILVER1 EAC2 (07:06)
[2024-10-26] MEDS ORDERED: FLUT.05NI (07:06)
[2024-10-26] MEDS ORDERED: IBUP200 (07:06)
[2024-10-26] MEDS ORDERED: POTA8 (07:07)
[2024-10-26] MEDS ORDERED: NITROGLYCERIN0.4 M3 (07:07)
[2024-10-26] MEDS ORDERED: propofoL 50 ML IV ONE (07:20)
[2024-10-26] MEDS ORDERED: Lactated Ringer's 1,000 ML IV ONE ×2 (07:20→07:40)
[2024-10-26] MEDS ORDERED: ROSUVASTATIN CAL5 MG (07:29)
[2024-10-26 08:52] VITALS: BP 112/65
== END 2024-10-26 08:55 | disposition home or self-care (01) ==
LOC: ORSCSDS 06:47
PROVIDERS: Surgery
PROC: 0DJD8ZZ Inspection of Lower Intestinal Tract, Via Natural or Artificial Opening Endoscopic (ICD-10-PCS; principal; 2024-10-26 08:00)
DX: Z12.11 Encounter for screening for malignant neoplasm of colon (principal); Z86.0101 Personal history of adenomatous and serrated colon polyps; K57.30 Diverticulosis of large intestine without perforation or abscess without bleeding; I10 Essential (primary) hypertension; E78.00 Pure hypercholesterolemia, unspecified; Z87.891 Personal history of nicotine dependence; Z79.899 Other long term (current) drug therapy
CPT/HCPCS: J2704; J7120

== ENCOUNTER → 2024-12-19 | Outpatient (CLI) | payer MEDICARE ==
[~2024-12-19] MED LIST changes: +ASPI81CH; +Amlodipine Bes2.5 MG; +BISA5EC; +CENTRUM SILVER1 EAC2; +EPIPEN0.3 MG/0.3; +FLUT.05NI; +IBUP200; +NITROGLYCERIN0.4 M3; +POTA8; +ROSUVASTATIN CAL5 MG
[2024-12-19 08:42] LABS: Source, Urine Clean Catch
[2024-12-19 10:55] LABS: Bilirubin, Urine Neg (Neg); Blood, Urine 3+ (Neg); Color, Urine Yellow (P-Yellow); Glucose Qualitative, Urine Neg (Neg); Ketones, Urine Neg (Neg); Leukocyte Esterase, Urine 3+ (Neg); Nitrite, Urine Neg (Neg); Protein, Urine 2+ (Neg); Urobilinogen, Urine NORM (Normal)
[2024-12-19 11:08] LABS: Appearance, Urine Hazy (Clear)
[2024-12-19 11:13] LABS: Bacteria Mod /hpf; Squamous Epithelial Cells Mod /hpf (Few); White Blood Cells, Urine 50-100 /hpf (0-5)
== END ==
LOC: LAB SHORT 08:38 → LAB 08:38
PROVIDERS: Internal Medicine
DX: R30.0 Dysuria (principal)
CPT/HCPCS: 81001; 87077; 87086; 87186